=== PATIENT | male | born 1975 | race Caucasian/White ===

== ENCOUNTER 2024-05-17 10:52 | Emergency (ER) | payer BC, OTHER ==
[~2024-05-17] VITALS: Ht 177.8 cm; Wt 114.3 kg
--- NOTE | 2024-05-17 11:19 | ED.PDOC ---
Epistaxis- HPI HPI Comments Pleasant 48-year-old gentleman with a history of hypertension presents with a chief complaint of epistaxis x2 hours. Onset was sudden. Denies trauma injury Denies having this before Tried pinching the nose with minimal improvement Denies diplopia chest pain shortness of breath diaphoresis Time Seen by MD: 10:58 Reviewed Notes: Nurses Notes, Medications, Allergies Allergies: Coded Allergies: Penicillins (Verified Allergy, Unknown, 05/17/24) Information Source: Patient Past Medical History PAST MEDICAL HISTORY: Denies Surgical History: Denies all surgeries Family History Family History: Reviewed,noncontributory to illness, No family hx of Cancer, No family hx of DM, No family hx of Heart fredy, No family hx of HTN, No family hx ofKidney fredy, No family hx of Liver fredy, No family hx of Lung fredy, No family hx of Stroke Social History Smoker: Non-Smoker Alcohol: Denies ETOH Use Drugs: Denies Drug Use All Other Systems: Reviewed and Negative (Per HPI) Physical Exam General Appearance: No Apparent Distress, Normal HEENT: Normal ENT Inspection, Pharynx Normal, TMs Normal, Other (Epistaxis from the left nostril. Unable to visualize source of bleeding. No airway obstruction.) Neck: Full Range of Motion, Non-Tender, Normal, Normal Inspection Respiratory: Chest Non-Tender, Lungs Clear, No Accessory Muscle Use, No Respiratory Distress, Normal Breath Sounds Cardiovascular: No Edema, No JVD, No Murmur, No Gallop, Normal Peripheral Pulses, Regular Rate/Rhythm Breast Exam: Deferred Gastrointestinal: No Organomegaly, Non Tender, No Pulsatile Mass, Normal Bowel Sounds, Soft Genitalia: Deferred Pelvic: Deferred Rectal: Deferred Extremities: No calf tenderness, Normal capillary refill, Normal inspection, Normal range of motion, Non-tender, No pedal edema Musculoskeletal : Apperance: Normal Neurologic: Alert, 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 Was a procedure done?: No Differential Diagnosis (NSB) Differential Diagnosis: Anterior Nasal Bleed, Other X-Ray, Labs, Meds, VS Vital Signs Date Time Temp Pulse Resp B/P (MAP) Pulse Ox O2 Delivery O2 Flow Rate FiO2 05/17/24 12:27 97.7 67 16 109/75 (86) 95 97.7 05/17/24 10:56 97.8 71 20 151/107 (122) 96 151/109 (123) Lab Test 05/17/24 11:26 Range/Units White Blood Count 8.5 4.4-10.8 10^3/uL Red Blood Count 5.00 4.5-5.90 10^6/uL Hemoglobin 16.1 13.5-17.5 g/dL Hematocrit 44.9 41.0-53.0 % Mean Corpuscular Volume 89.8 80.0-100.0 fL Mean Corpuscular Hemoglobin 32.2 H 28.0-32.0 pg Mean Corpuscular Hemoglobin Concent 35.8 32.0-36.0 g/dL Red Cell Distribution Width 12.5 11.8-14.3 % Platelet Count 248 140-450 10^3/uL Mean Platelet Volume 7.6 6.9-10.8 fL Neutrophils (%) (Auto) 65.3 37.0-80.0 % Lymphocytes (%) (Auto) 26.0 10.0-50.0 % Monocytes (%) (Auto) 5.4 0.0-12.0 % Eosinophils (%) (Auto) 2.6 0.0-7.0 % Basophils (%) (Auto) 0.7 0.0-2.0 % Neutrophils # (Auto) 5.5 1.6-8.6 10 ^3/uL Lymphocytes # (Auto) 2.2 0.4-5.4 10 ^3/uL Monocytes # (Auto) 0.5 0-1.3 10 ^3/uL Eosinophils # (Auto) 0.2 0-0.8 10 ^3/uL Basophils # (Auto) 0.1 0-0.2 10 ^3/uL Nucleated Red Blood Cells 0.0 % Sodium Level 137 136-145 mmol/L Potassium Level 3.7 3.5-5.1 mmol/L Chloride Level 103 98-107 mmol/L Carbon Dioxide Level 24 20-31 mmol/L Anion Gap 10 5-15 Blood Urea Nitrogen 10 9-23 mg/dL Creatinine 0.83 0.700-1.30 mg/dL Glomerular Filtration Rate Calc 109 >90 mL/min BUN/Creatinine Ratio 12.0 10.0-20.0 Serum Glucose 118 H 74-106 mg/dL Calcium Level 10.0 8.7-10.4 mg/dL X-Ray, Labs, Meds, VS Comment After ROS physical examination findings are likely consistent with an anterior nosebleed. Ordered labs and reviewed by me. No critical findings patient hemodynamically stable. Rapid rhino was ordered and applied. Hemostasis was obtained on re-evaluation. The patient reported significant imp rovement. Advised to return in 48 hours or sooner if symptoms worsen Discussed avoiding picking nose and supportive care No other signs of bruising/bleeding and no family history of bleeding disorder Supportive care discussed Return precautions discussed Patient is stable for discharge at this time. External notes reviewed. Test results and diagnostic imaging interpreted. All diagnostic findings, discharge care, education and instructions provided Follow-up with PCP in 2 to 3 days Patient verbalized understanding and agreed to treatment plan Vital signs stable, afebrile, no acute distress noted Patient ambulatory with strong steady gait Advised to return precautions for any new or worsening symptoms, return to ER immediately for re-evaluation Patient is aware that the purpose of this visit was for an acute medical emergency requiring emergent stabilization. Chronic conditions, including malignancies have not been ruled out. Patient is instructed to follow up with PCP as directed and discharge instructions for continued care and workup. If unable to arrange follow-up, patient is to return to the emergency department for reassessment. Patient (parent or legal guardian if applicable) was given verbal and written discharge instructions and acknowledges understanding. Time of 1ST Reevaluation: 11:17 Reevaluation 1ST: Improved Patient Education/Counseling: Diagnosis, Treatment Family Education/Counseling: Diagnosis, Treatment Departure 1 Departure Time of Disposition: 12:33 Impression: Primary Impression: Epistaxis Disposition: 01 HOME / SELF CARE / HOMELESS Condition: Stable Discharged With: Self Critical Care Note Critical Care Time?: No Stability Stability form required: No Heart Score Heart Score: Heart Score Response (Comments) Value History N/A 0 EKG N/A 0 Age N/A 0 Risk Factors N/A 0 Troponin N/A 0 Total 0 PARISH FATIMA NP May 17, 2024 11:19
[2024-05-17 11:49] LABS: Basophils # (auto) 0.1 10 ^3/uL (0-0.2); Basophils % (auto) 0.7 % (0.0-2.0); Eosinophils # (auto) 0.2 10 ^3/uL (0-0.8); Eosinophils % (auto) 2.6 % (0.0-7.0); Hematocrit 44.9 % (41.0-53.0); Hemoglobin 16.1 g/dL (13.5-17.5); Lymphocytes # (auto) 2.2 10 ^3/uL (0.4-5.4); Mean Corpuscular Hemoglobin 32.2 pg (28.0-32.0); Mean Corpuscular Hgb Conc. 35.8 g/dL (32.0-36.0); Mean Corpuscular Volume 89.8 fL (80.0-100.0); Monocytes # (auto) 0.5 10 ^3/uL (0-1.3); Monocytes % (auto) 5.4 % (0.0-12.0); Neutrophils # (auto) 5.5 10 ^3/uL (1.6-8.6); Neutrophils % (auto) 65.3 % (37.0-80.0); Platelet Count (auto) 248 10^3/uL (140-450); Red Cell Distribution Width 12.5 % (11.8-14.3); White Blood Cell 8.5 10^3/uL (4.4-10.8)
[2024-05-17 11:54] LABS: Chloride 103 mmol/L (98-107); Potassium 3.7 mmol/L (3.5-5.1); Sodium 137 mmol/L (136-145)
[2024-05-17 11:55] LABS: Anion Gap 10 (5-15); Carbon Dioxide 24 mmol/L (20-31)
[2024-05-17 12:01] LABS: Blood Urea Nitrogen 10 mg/dL (9-23); Glucose 118 mg/dL (74-106)
[2024-05-17 12:27] VITALS: BP 109/75; PULSE 67; RESP 16; TEMP 97.7; O2SAT 95
== END 2024-05-17 12:39 | disposition home or self-care (01) ==
LOC: ER 10:52
DX: R04.0 Epistaxis (principal); I10 Essential (primary) hypertension; Z88.0 Allergy status to penicillin
CPT/HCPCS: 36415; 80048; 85025

== ENCOUNTER 2024-05-19 07:23 | Emergency (ER) | payer BC ==
[~2024-05-19] VITALS: Ht 177.8 cm; Wt 104.0 kg
[2024-05-19 07:52] VITALS: BP 140/108; PULSE 74; RESP 16; TEMP 98.9; O2SAT 97
--- NOTE | 2024-05-19 08:25 | ED.PDOC ---
Epistaxis- HPI HPI Comments 48-year-old male seen two days ago for epistaxis. Today he presents for follow up and for nasal packing removal. Hemostasis obtained. Denies any chest pain shortness of breath nor any other complaint Chief Complaint: Nose Bleed Time Seen by MD: 07:30 Primary Care Provider: INOCENCIA Reviewed Notes: Nurses Notes, Medications, Allergies Allergies: Coded Allergies: Penicillins (Verified Allergy, Unknown, 05/17/24) Information Source: Patient Mode of Arrival: Ambulatory Past Medical History PAST MEDICAL HISTORY: Denies Surgical History: Denies all surgeries Family History Family History: Reviewed,noncontributory to illness, No family hx of Cancer, No family hx of DM, No family hx of Heart fredy, No family hx of HTN, No family hx ofKidney fredy, No family hx of Liver fredy, No family hx of Lung fredy, No family hx of Stroke Social History Smoker: Non-Smoker Alcohol: Denies ETOH Use Drugs: Denies Drug Use All Other Systems: Reviewed and Negative (Per HPI) Physical Exam General Appearance: No Apparent Distress, Normal HEENT: Normal ENT Inspection, Pharynx Normal, TMs Normal Neck: Full Range of Motion, Non-Tender, Normal, Normal Inspection Respiratory: Chest Non-Tender, Lungs Clear, No Accessory Muscle Use, No Respiratory Distress, Normal Breath Sounds Cardiovascular: No Edema, No JVD, No Murmur, No Gallop, Normal Peripheral Pulses, Regular Rate/Rhythm Breast Exam: Deferred Gastrointestinal: No Organomegaly, Non Tender, No Pulsatile Mass, Normal Bowel Sounds, Soft Genitalia: Deferred Pelvic: Deferred Rectal: Deferred Extremities: No calf tenderness, Normal capillary refill, Normal inspection, Normal range of motion, Non-tender, No pedal edema Musculoskeletal : Apperance: Normal 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 Was a procedure done?: No Differential Diagnosis (NSB) Differential Diagnosis: Anterior Nasal Bleed X-Ray, Labs, Meds, VS Vital Signs Date Time Temp Pulse Resp B/P (MAP) Pulse Ox O2 Delivery O2 Flow Rate FiO2 05/19/24 07:52 98.9 74 16 140/108 (119) 97 98.9 05/19/24 07:52 74 16 97 Room Air 05/19/24 07:29 98.3 69 18 154/103 (120) 96 X-Ray, Labs, Meds, VS Comment Inform patient of their elevated blood pressure Today discussed importance of regular exercise Sodium restriction DASH diet Limit or illuminate alcohol intake Patient verbalized understanding Follow-up with PCP On reevaluation, patient had symptomatic improvement. Patient is stable for discharge at this time. External notes reviewed. Test results and diagnostic imaging interpreted. All diagnostic findings, discharge care, education and instructions provided Follow-up with PCP in 2 to 3 days Patient verbalized understanding and agreed to treatment plan Vital signs stable, afebrile, no acute distress noted Patient ambulatory with strong steady gait Advised to return precautions for any new or worsening symptoms, return to ER immediately for re-evaluation Patient is aware that the purpose of this visit was for an acute medical emergency requiring emergent stabilization. Chronic conditions, including malignancies have not been ruled out. Patient is instructed to follow up with PCP as directed and discharge instructions for continued care and workup. If unable to arrange follow-up, patient is to return to the emergency department for reassessment. Patient (parent or legal guardian if applicable) was given verbal and written discharge instructions and acknowledges understanding. Time of 1ST Reevaluation: 08:24 Reevaluation 1ST: Improved Patient Education/Counseling: Diagnosis, Treatment Family Education/Counseling: Diagnosis, Treatment Departure 1 Departure Time of Disposition: 08:25 Impression: Primary Impression: Epistaxis Disposition: 01 HOME / SELF CARE / HOMELESS Condition: Stable Discharged With: Self Critical Care Note Critical Care Time?: No Stability Stability form required: No Heart Score Heart Score: Heart Score Response (Comments) Value History N/A 0 EKG N/A 0 Age N/A 0 Risk Factors N/A 0 Troponin N/A 0 Total 0 PARISH FATIMA NP May 19, 2024 08:25
== END 2024-05-19 08:28 | disposition home or self-care (01) ==
LOC: ER 07:23
DX: R04.0 Epistaxis (principal); Z88.0 Allergy status to penicillin